=== PATIENT | male | born 1970 | race Caucasian/White ===

== ENCOUNTER 2019-02-20 10:59 | Emergency (ER) | payer BC ==
[2019-02-20 11:43] VITALS: BP 119/76
--- NOTE | 2019-02-20 12:13 | UC ---
Respiratory Complaint HPI - HPI Summary HPI Summary: He has been fighting a URI for couple of weeks. In the last 24-48 hours he's had increased congestion, generalized malaise and weakness and a fever at home. - History of Current Complaint Chief Complaint: UCGeneralIllness Stated Complaint: SINUS ISSUE Time Seen by Provider: 02/20/19 11:48 Hx Obtained From: Patient Onset/Duration: Gradual Onset, Lasting Days Timing: Constant Severity Initially: Moderate Severity Currently: Moderate Pain Intensity: 7 Character: Cough: Nonproductive Associated Signs And Symptoms: Positive: Fever, Chills, Nasal Congestion - Allergies/Home Medications Allergies/Adverse Reactions: Allergies Allergy/AdvReac Type Severity Reaction Status Date / Time No Known Allergies Allergy Verified 02/20/19 11:37 Home Medications: Home Medications Fluticasone NASAL SPRAY 50MCG* [Flonase NASAL SPRAY 50MCG*] 1 spray ALT NARE DAILY WITH MEAL 02/20/19 [History Confirmed 02/20/19] PMH/Surg Hx/FS Hx/Imm Hx Previously Healthy: Yes - Surgical History Surgical History: Yes Surgery Procedure, Year, and Place: RTK - Social History Alcohol Use: Rare Substance Use Type: None Smoking Status (MU): Former Smoker Review of Systems All Other Systems Reviewed And Are Negative: Yes Constitutional: Positive: Fever, Chills, Fatigue ENT: Positive: Sore Throat, Nasal Discharge, Sinus Congestion Respiratory: Positive: Cough Cardiovascular: Positive: Negative Gastrointestinal: Positive: Negative Genitourinary: Positive: Negative Musculoskeletal: Positive: Arthralgia, Myalgia Physical Exam - Summary Physical Exam Summary: Is nontoxic in appearance with stable vital signs Triage Information Reviewed: Yes Appearance: Well-Appearing, No Pain Distress Vital Signs: Initial Vital Signs Temp 97.4 F 02/20/19 11:39 Pulse 75 02/20/19 11:39 Resp 18 02/20/19 11:39 BP 119/76 02/20/19 11:39 Pulse Ox 99 02/20/19 11:39 Vital Signs Reviewed: Yes ENT: Positive: Pharyngeal erythema, Nasal congestion - Sinuses transilluminate Neck exam: Normal Neck: Positive: Supple, Nontender, Enlarged Nodes @ - Anterior cervical Respiratory Exam: Normal Cardiovascular Exam: Normal Abdominal Exam: Normal Neurological Exam: Normal Respiratory Course/Dx - Course Course Of Treatment: He has been using oral decongestants as well as Flonase for at least a week and has only gotten worse. I am going to treat him with antibiotics at this point for failed conservative treatment. - Differential Dx/Diagnosis Provider Diagnosis: Sinusitis Discharge ED - Sign-Out/Discharge Documenting (check all that apply): Patient Departure All imaging exams completed and their final reports reviewed: No Studies - Discharge Plan Condition: Stable Disposition: HOME Patient Education Materials: Sinusitis (ED) Referrals: Jude Eason PA [Primary Care Provider] - - Billing Disposition and Condition Condition: STABLE Disposition: Home
[2019-02-20 12:23] LABS: Influenza A Molecular NEGATIVE (Negative); Influenza B Molecular NEGATIVE (Negative)
== END 2019-02-20 12:30 | disposition home or self-care (01) ==
LOC: UCEAST 10:59
DX: J32.9 Chronic sinusitis, unspecified (principal); R68.83 Chills (without fever); R53.83 Other fatigue; J02.9 Acute pharyngitis, unspecified; M79.10 Myalgia, unspecified site; Z87.891 Personal history of nicotine dependence
CPT/HCPCS: 99202; G0463

== ENCOUNTER 2023-07-01 11:47 | Observation (INO) ==
[~2023-07-01 11:47] MED LIST: NS 0.45% 1000 ml BAG 1,000 ML IV SCH; Naloxone 0.4 mg VIAL 0.4 mg/ml 1 ml VIAL IV PRN; Ondansetron 4 mg VIAL 2 MG/ML 2 ml VIAL IV PRN
[2023-07-01] MEDS ORDERED: ceFAZolin 2 GM PREMIX 2 GM/50 ML BAG ONE (12:44)
[2023-07-01] MEDS ORDERED: Tranexamic Acid 1 GM/100ML BAG 2,000 MG/200 ML BAG IV ONE (13:07)
[2023-07-01 13:20] LABS: Rapid COVID-19 Molecular Undetected (Undetected)
[2023-07-01] MEDS: Lactated Ringers 1000 ml BAG 1,000 ML IV SCH ×2 (13:30→20:47)
[2023-07-01] MEDS ORDERED: Midazolam 2 mg/2 ml VIAL 1 mg/ml 2 ml VIAL (2 mg) ONE ×2 (14:33→15:11)
[2023-07-01] MEDS ORDERED: fentaNYL 100 mcg/2 ml 50 MCG/ML VIAL ONE ×3 (14:34→18:47)
[2023-07-01] MEDS ORDERED: ROPIVACAINE 5 MG/ML 30 ML BTL (0.5%) ONE ×2 (14:34→14:50)
[2023-07-01] MEDS ORDERED: Ondansetron 4 mg VIAL 2 MG/ML 2 ml VIAL ONE (15:13)
[2023-07-01] MEDS ORDERED: ceFAZolin VIAL VIAL ONE (16:56)
[2023-07-01] MEDS ORDERED: Calcium Carb (TUMS) 500 mg CHEW TAB PO PRN (18:23)
[2023-07-01] MEDS ORDERED: Ondansetron 4 mg VIAL 2 MG/ML 2 ml VIAL IV PRN (18:23)
[2023-07-01] MEDS ORDERED: Magnesium Hydroxide LIQ 30 ML UDC PO PRN (18:23)
[2023-07-01] MEDS ORDERED: Ondansetron ODT 4 mg TAB 4 MG TAB PO PRN (18:23)
[2023-07-01] MEDS ORDERED: Lactulose 30 ml UDC PO PRN (18:23)
[2023-07-01] MEDS ORDERED: Albuterol HFA INHALER 8 gm MDI INH PRN (18:26)
[2023-07-01] MEDS: fentaNYL 100 mcg/2 ml 50 MCG/ML VIAL IV PRN (18:49)
[2023-07-01] MEDS: Acetaminophen IV 1 GM/100ML 1,000 MG/100 ML BAG IV ONE (20:40)
[2023-07-01] MEDS: Buffered Lidocaine 1% SYRIN 1 ml INTRADERM ONE (20:40)
[2023-07-01] MEDS: Magnesium Hydroxide LIQ 30 ML UDC PO SCH (20:48)
[2023-07-01] MEDS: Morphine 2 MG/ML SYRINGE IV PRN (21:56)
[2023-07-01] MEDS: Nicotine GUM 4MG FRUIT FLAVOR PO PRN (21:58)
[2023-07-02] MEDS: ceFAZolin 2 GM in NS PREMIX 2 GM/100 ML BAG IVPB SCH (00:32)
[2023-07-02 06:25] LABS: Calcium 8.7 mg/dL (8.6-10.3); Creatinine, Serum 0.91 mg/dL (0.67-1.17); Potassium 4.4 mmol/L (3.5-5.0); eGFR CKD-EPI 100.2 (>60)
[2023-07-02 07:52] LABS: Hematocrit 38.6 % (38-53); Hemoglobin 12.8 g/dL (13.2-16.3); Mean Platelet Volume 8.8 fL (7.5-11.2); Platelet Count 202 10^3/uL (150-450)
[2023-07-02] MEDS: Vitamin THERAPEUTIC TAB PO SCH (08:57)
[2023-07-02 13:45] VITALS: BP 146/86
== END 2023-07-02 17:15 | disposition home or self-care (01) ==
LOC: OR 11:47 → SSU 11:47
PROVIDERS: ADMIT Orthopaedic Surgery Adult Reconstructive Orthopaedic Surgery; ATTEND Orthopaedic Surgery Adult Reconstructive Orthopaedic Surgery